=== PATIENT | male | born 1990 | race Caucasian/White ===

== ENCOUNTER 2024-12-30 09:48 | Emergency (ER) | payer BC | END 2024-12-30 11:08 | disposition home or self-care (01) | LOC: MW.ED 09:48 | DX: M25.471 Effusion, right ankle (principal); Z79.899 Other long term (current) drug therapy; Z75.3 Unavailability and inaccessibility of health-care facilities | CPT/HCPCS: 73610-26-RT; 73610-RT; 99283; 99284 ==